=== PATIENT | female | born 1975 | race Caucasian/White ===

== ENCOUNTER 2016-11-12 07:16 | Emergency (ER) | payer OTHER ==
[2016-11-12 07:29] VITALS: BP 133/74
--- NOTE | 2016-11-12 07:46 | UC ---
Neck Pain HPI - HPI Summary HPI Summary: pain behind and under right ear for past month, after a bout of pneumonia. She says "it feels weird", not like a muscle spasm. She can pinpoint an area of discomfort right over the mastoid and extending down into the SCM muscle. Hurts to turn head. Causes headaches. 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 I don't have specific details on this aneurysm. She has a Neurosurgeon in [place] who is "monitoring it", it was not large enough to require clipping. She has not talked to her Neurosurgeon over this past month. - History of Current Complaint Chief Complaint: MELLOanaPacarmen Stated Complaint: NECK PAIN Time Seen by Provider: 11/12/16 07:18 Hx Obtained From: Patient Hx Last Menstrual Period: yesterday Onset/Duration: Gradual Onset, Lasting Weeks - 4 Severity: Mild Location: Discrete At: - right mastoid area Character: Dull, Aching Aggravating Factors: Movement Alleviating Factors: Nothing Associated Signs & Symptoms: Positive: Swelling - "feels like something is moving around in there", Headache. Negative: Fever, Nuchal Rigity, Weakness, Paresthesia Related History: Other - brain aneurysm,?in brainstem area by her description - Risk Factors Meningitis Risk Factors: Negative - Allergies/Home Medications Allergies/Adverse Reactions: Allergies Allergy/AdvReac Type Severity Reaction Status Date / Time Cefaclor [From Ceclor] Allergy Rash Verified 11/12/16 07:29 Clarithromycin [From Biaxin] Allergy Difficulty Verified 11/12/16 07:29 Breathing Lidocaine Allergy Swelling Verified 11/12/16 07:29 Penicillins Allergy Difficulty Verified 11/12/16 07:29 Breathing Home Medications: Home Medications Ranitidine HCl 150 mg PO BID 11/12/16 [History Confirmed 11/12/16] guaiFENesin ER TAB [Mucinex*] 400 mg PO TID 11/12/16 [History Confirmed 11/12/16 ] PMH/Surg Hx/FS Hx/Imm Hx Previously Healthy: Yes - Surgical History Surgical History: Yes Surgery Procedure, Year, and Place: appy, gallbladder 2004 - Family History Known Family History: Positive: None - Social History Occupation: Employed Full-time Lives: With Family Alcohol Use: None Substance Use Type: None Smoking Status (MU): Former Smoker When Did the Patient Quit Smoking/Using Tobacco: 2003 Review Of Systems Constitutional: Positive: Negative Skin: Positive: Negative Eyes: Positive: Negative ENT: Positive: Negative Respiratory: Positive: Negative Cardiovascular: Positive: Negative Gastrointestinal: Positive: Negative Genitourinary: Positive: Negative Musculoskeletal: Positive: Decreased ROM - neck, Myalgia - neck Neurological: Positive: Headache - off and on, more than usual over past month Psychological: Positive: Negative All Other Systems Reviewed And Are Negative: Yes Physical Exam Triage Information Reviewed: Yes Appearance: Well-Appearing, No Pain Distress, Well-Nourished, Obese Vital Signs: Initial Vital Signs Temp 97.5 F 11/12/16 07:19 Pulse 73 11/12/16 07:19 Resp 18 11/12/16 07:19 BP 133/74 11/12/16 07:19 Pulse Ox 100 11/12/16 07:19 Vital Signs Reviewed: Yes Eye Exam: Normal Eyes: Positive: Conjunctiva Clear ENT: Positive: Hearing grossly normal, TMs normal. Negative: TM bulging, TM dull, TM red, Trismus, Muffled/hoarse voice Neck: Positive: Supple, No Lymphadenopathy, Tenderness @ - right sternocleidomastoid area at mastoid. No palpable abnormalities, but tender to palpate around the mastoid. No redness or swelling. Negative: Nuchal Rigidity, Enlarged Nodes @ Respiratory Exam: Normal Cardiovascular Exam: Normal Musculoskeletal Exam: Normal Neurological Exam: Normal Psychological Exam: Normal Skin Exam: Normal Neck Pain Course/Dx - Course Course Of Treatment: I urged her to call her Neurosurgeon this morning for further evaluation. There is no current evidence of a bleeding aneurysm, but further studies may need to be done. - Differential Dx/Diagnosis Differential Dx/HQI/PQRI: Intracranial Bleed, Meningitis, Sprain, Vertebral Artery Aneurysm Provider Diagnoses: neck muscle strain Discharge - Discharge Plan Condition: Stable Disposition: HOME Patient Education Materials: Neck Pain (ED) Referrals: Luis Esparza MD [Primary Care Provider] - Additional Instructions: Your pain is likely a muscle spasm, but because you have the history of an aneurysm in this area it would be gordillo to call your Neurosurgeon today to report your symptoms. They may want to evaluate you or do studies to look at your aneurysm that we can't perform at Urgent Care.
== END 2016-11-12 07:48 | disposition home or self-care (01) ==
LOC: UCCORT 07:16
DX: S16.1XXA Strain of muscle, fascia and tendon at neck level, initial encounter (principal); X58.XXXA Exposure to other specified factors, initial encounter; Y93.9 Activity, unspecified; Y92.9 Unspecified place or not applicable; Z88.1 Allergy status to other antibiotic agents; Z88.4 Allergy status to anesthetic agent; Z88.0 Allergy status to penicillin; Z90.49 Acquired absence of other specified parts of digestive tract; Z87.891 Personal history of nicotine dependence
CPT/HCPCS: 99211; G0463

== ENCOUNTER 2017-04-19 08:51 | Emergency (ER) | payer OTHER ==
--- NOTE | 2017-04-19 08:58 | UC ---
Eye Complaint HPI - HPI Summary HPI Summary: 41 year old female presents with complains of right eye pain/redness. - History of Current Complaint Stated Complaint: RIGHT EYE COMPLAINT Time Seen by Provider: 04/19/17 08:55 Hx Last Menstrual Period: yesterday - Allergies/Home Medications Allergies/Adverse Reactions: Allergies Allergy/AdvReac Type Severity Reaction Status Date / Time Cefaclor [From Ceclor] Allergy Rash Verified 04/19/17 09:20 Clarithromycin [From Biaxin] Allergy Difficulty Verified 04/19/17 09:20 Breathing Lidocaine Allergy Swelling Verified 04/19/17 09:20 Penicillins Allergy Difficulty Verified 04/19/17 09:20 Breathing PMH/Surg Hx/FS Hx/Imm Hx Previously Healthy: Yes - Surgical History Surgical History: Yes Surgery Procedure, Year, and Place: appy, gallbladder 2004 - Family History Known Family History: Positive: None - Social History Alcohol Use: None Substance Use Type: None Smoking Status (MU): Former Smoker When Did the Patient Quit Smoking/Using Tobacco: 2003 Review of Systems Constitutional: Negative Skin: Negative Eyes: Drainage, Eye Redness ENT: Negative Respiratory: Negative Cardiovascular: Negative Gastrointestinal: Negative Genitourinary: Negative Motor: Negative Neurovascular: Negative Musculoskeletal: Negative Neurological: Negative Psychological: Negative All Other Systems Reviewed And Are Negative: Yes Physical Exam Triage Information Reviewed: Yes Eyes: Positive: Conjunctiva Inflamed, Discharge ENT Exam: Normal Dental Exam: Normal Neck exam: Normal Neck: Positive: 1 Respiratory Exam: Normal Cardiovascular Exam: Normal Abdominal Exam: Normal Musculoskeletal Exam: Normal Neurological Exam: Normal Psychological Exam: Normal Skin Exam: Normal Eye Complaint Course/Dx - Differential Dx/Diagnosis Provider Diagnoses: right eye redness. right eye drainage. rigth eye swelling Discharge - Discharge Plan Condition: Stable Disposition: HOME Prescriptions: Tobramycin/Dexameth OPTH.SUSP* [Tobradex 0.3-0.1%*] 1 drop RIGHT EYE Q4H #1 btl Patient Education Materials: Conjunctivitis (ED) Referrals: Luis Esparza MD [Primary Care Provider] - If Needed
[2017-04-19 09:19] VITALS: BP 116/84
== END 2017-04-19 09:33 | disposition home or self-care (01) ==
LOC: UCCORT 08:51
DX: H57.8 Other specified disorders of eye and adnexa (principal); H02.843 Edema of right eye, unspecified eyelid; Z88.1 Allergy status to other antibiotic agents; Z88.4 Allergy status to anesthetic agent; Z88.0 Allergy status to penicillin; Z87.891 Personal history of nicotine dependence
CPT/HCPCS: 99212; G0463